=== PATIENT | female | born 1985 | race African-American/Black ===

== ENCOUNTER 2018-02-09 21:07 | Emergency (ER) | payer MEDICAID ==
[~2018-02-09] VITALS: Ht 160 cm; Wt 86.2 kg
[2018-02-09 21:26] VITALS: BP 129/80
== END 2018-02-10 | disposition left against medical advice (07) ==
LOC: ER 21:24
DX: Z53.21 Procedure and treatment not carried out due to patient leaving prior to being seen by health care provider (principal)

== ENCOUNTER 2019-03-15 08:25 | Emergency (ER) | payer MEDICAID ==
[~2019-03-15] VITALS: Ht 167.6 cm; Wt 106.0 kg
[2019-03-15] MEDS ORDERED: IBUPROFEN 800MG TABLET PO ONE (10:30)
[2019-03-15 11:35] VITALS: BP 129/91
== END 2019-03-15 11:55 | disposition home or self-care (01) ==
LOC: ER 08:25
DX: G56.01 Carpal tunnel syndrome, right upper limb (principal); F12.10 Cannabis abuse, uncomplicated; Z90.49 Acquired absence of other specified parts of digestive tract; Z98.890 Other specified postprocedural states
CPT/HCPCS: 29125; 99283

== ENCOUNTER 2019-05-24 20:18 | Inpatient (IN) | payer MEDICAID ==
[~2019-05-24] VITALS: Ht 152.4 cm; Wt 99.8 kg
[2019-05-25] MEDS ORDERED: KETOROLAC 30MG/ML VIAL IV STA (01:09)
[2019-05-25] MEDS ORDERED: ONDANSETRON HCL 4MG/2ML INJ IV STA (01:09)
[2019-05-25] MEDS ORDERED: SODIUM CHLORIDE 0.9% 1,000 ML IV ONE (01:09)
[2019-05-25 01:28] LABS: BASOPHILS % 0.2 % (0.0-2.0); EOSINOPHILS % 0.9 % (0.0-5.0); HEMATOCRIT. 43.3 % (36.0-48.0); HEMOGLOBIN. 14.4 g/dL (12.0-16.0); LYMPHOCYTES % 12.8 % (20.0-50.0); MEAN CORPUSCULAR HEMOGLOBIN 28.6 pg (28.0-32.0); MEAN PLATELET VOLUME 7.5 fl (7.4-10.4); MONOCYTES % 6.4 % (2.0-8.0); NEUTROPHILS % 79.7 % (40.0-76.0); PLATELET 337 x1000/uL (130-400); RED BLOOD CELL COUNT 5.04 mill/uL (4.2-5.4); RED CELL DISTRIBUTION WIDTH 16.1 % (11.6-14.6)
[2019-05-25 01:33] LABS: CHLORIDE 104 mEq/L (98-107)
[2019-05-25 01:42] LABS: CLARITY URINE CLEAR (CLEAR); COLOR URINE DARK YELLOW (YELLOW); KETONES URINE NEGATIVE (NEGATIVE); LEUKOCYTE ESTERASE URINE NEGATIVE (NEGATIVE); NITRITE URINE NEGATIVE (NEGATIVE); OCCULT BLOOD URINE NEGATIVE (NEGATIVE); PROTEIN URINE NEGATIVE (NEGATIVE); SPECIFIC GRAVITY URINE 1.026 (1.005-1.030)
[2019-05-25] MEDS ORDERED: MORPHINE SULFATE 4 MG/ML CPJ (NOT FOR IM USE) IV ONE (03:45)
[2019-05-25] MEDS ORDERED: CEFTRIAXONE 1 G PREMIX 50 ML IV ONE (04:00)
[2019-05-25] MEDS ORDERED: METRONIDAZOLE 500 MG PREMIX 100 ML IV ONE (04:00)
[2019-05-25 08:30] VITALS: BP 139/97
[2019-05-25 08:57] LABS: HCG SCREEN NEGATIVE
[2019-05-25] MEDS ORDERED: HYDROCODONE/ACETAMINOPHEN 5/325MG TABLET PO PRN (09:45)
[2019-05-25] MEDS ORDERED: LORAZEPAM 0.5MG TABLET PO PRN (09:45)
[2019-05-25] MEDS ORDERED: ONDANSETRON HCL 4MG/2ML INJ IV PRN (09:45)
[2019-05-25] MEDS ORDERED: IPRATROPIUM/ALBUTEROL 0.5-3(2.5)MG/3ML NEB INH PRN (09:45)
[2019-05-25] MEDS ORDERED: CLONIDINE 0.1MG TABLET PO PRN (09:45)
[2019-05-25] MEDS ORDERED: ACETAMINOPHEN 325MG TABLET PO PRN (09:45)
[2019-05-25 10:21] VITALS: BP 139/91
[2019-05-25] MEDS: MORPHINE SULFATE 2 MG/ML CPJ (NOT FOR IM USE) IV PRN ×2 (11:05→18:15)
[2019-05-25 12:00] VITALS: BP 119/66
[2019-05-25] MEDS: DEXT 5%/0.9% NACL 1,000 ML IV SCH (13:13)
[2019-05-25 14:02] LABS: HEPATITIS B SURFACE ANTIGEN NEGATIVE
[2019-05-25 14:32] LABS: HEPATITIS A AB IGM NEGATIVE (NEGATIVE)
[2019-05-25 16:25] VITALS: BP 127/76
[2019-05-25 20:00] VITALS: BP 123/64
[2019-05-25 22:06] LABS: CHLORIDE 105 mEq/L (98-107)
[2019-05-26] VITALS: BP 144/87
[2019-05-26] MEDS: DEXT 5%/0.9% NACL 1,000 ML IV SCH (00:04)
[2019-05-26 04:00] VITALS: BP 142/94
[2019-05-26 07:46] LABS: PROTHROMBIN TIME 10.2 sec (9.6-11.0)
[2019-05-26 07:58] LABS: BASOPHILS % 0.6 % (0.0-2.0); EOSINOPHILS % 2.7 % (0.0-5.0); HEMATOCRIT. 37.2 % (36.0-48.0); HEMOGLOBIN. 12.6 g/dL (12.0-16.0); MEAN CORPUSCULAR HEMOGLOBIN 28.9 pg (28.0-32.0); MEAN CORPUSCULAR VOLUME 85.5 fL (81.0-99.0); MEAN PLATELET VOLUME 7.8 fl (7.4-10.4); MONOCYTES % 10.3 % (2.0-8.0); NEUTROPHILS % 67.4 % (40.0-76.0); PLATELET 321 x1000/uL (130-400); RED BLOOD CELL COUNT 4.36 mill/uL (4.2-5.4); RED CELL DISTRIBUTION WIDTH 16.2 % (11.6-14.6)
[2019-05-26 08:00] VITALS: BP 125/72
[2019-05-26] MEDS: MORPHINE SULFATE 2 MG/ML CPJ (NOT FOR IM USE) IV PRN (08:14)
[2019-05-26] MEDS ORDERED: CEFAZOLIN 1000MG PREMIX 50 ML IV NR (12:00)
[2019-05-26 12:15] VITALS: BP 122/77
[2019-05-26] MEDS: LEVOFLOXACIN 500MG PREMIX 100 ML IV SCH (13:09)
[2019-05-26] MEDS ORDERED: IOHEXOL-300 100 ML BOTTLE ONE (14:52)
[2019-05-26] MEDS ORDERED: SIMETHICONE 40 MG/0.6 ML 30ML ONE (15:09)
[2019-05-26] MEDS ORDERED: METOCLOPRAMIDE HCL 10MG/2ML VIAL ONE (15:33)
[2019-05-26] MEDS ORDERED: GLYCOPYRROLATE 0.2 MG/ML 2ML VIAL ONE (15:33)
[2019-05-26] MEDS ORDERED: LIDOCAINE HCL/PF 1% 10 MG/ML 5ML VIAL ONE (15:33)
[2019-05-26] MEDS ORDERED: ROCURONIUM BROMIDE 10MG/ML VIAL 5ML IV ONE (15:33)
[2019-05-26] MEDS ORDERED: MIDAZOLAM HCL 2 MG/2 ML VIAL ONE (15:33)
[2019-05-26] MEDS ORDERED: SUCCINYLCHOLINE CHLORIDE 200MG/10ML IV ONE (15:33)
[2019-05-26] MEDS ORDERED: CEFAZOLIN SODIUM 1000MG/VIAL ONE (15:33)
[2019-05-26] MEDS ORDERED: SODIUM CHLORIDE 0.9% 10ML VIAL ONE (15:33)
[2019-05-26] MEDS ORDERED: DEXAMETHASONE 4MG/ML 1ML VIAL ONE (15:33)
[2019-05-26] MEDS ORDERED: EPHEDRINE SULFATE 50MG/ML VIAL ONE (15:33)
[2019-05-26] MEDS ORDERED: NEOSTIGMINE METHYLSULFATE 1MG/ML 10 ML VIAL ONE (15:33)
[2019-05-26] MEDS ORDERED: PROPOFOL 200MG/20ML VIAL IV ONE (15:33)
[2019-05-26] MEDS ORDERED: ONDANSETRON HCL 4MG/2ML INJ ONE (15:33)
[2019-05-26] MEDS ORDERED: FENTANYL CITRATE/PF 50MCG/ML 2ML VIAL ONE ×2 (15:33→15:58)
[2019-05-26] MEDS ORDERED: HYDROMORPHONE HCL/PF 2MG/ML CPJ IV PRN (18:00)
[2019-05-26 20:00] VITALS: BP 132/78
[2019-05-27] VITALS: BP 152/95
[2019-05-27 04:00] VITALS: BP 126/82
[2019-05-27 05:13] LABS: HIV SCREEN 4G Non Reactive (Non Reactive)
[2019-05-27 06:29] LABS: PROTHROMBIN TIME 10.7 sec (9.6-11.0)
[2019-05-27 06:52] LABS: CHLORIDE 106 mEq/L (98-107)
[2019-05-27 07:03] LABS: BASOPHILS % 0.3 % (0.0-2.0); HEMATOCRIT. 37.8 % (36.0-48.0); HEMOGLOBIN. 12.9 g/dL (12.0-16.0); LYMPHOCYTES % 10.1 % (20.0-50.0); MEAN CORPUSCULAR VOLUME 85.3 fL (81.0-99.0); MEAN PLATELET VOLUME 7.7 fl (7.4-10.4); MONOCYTES % 4.9 % (2.0-8.0); NEUTROPHILS % 84.7 % (40.0-76.0); PLATELET 374 x1000/uL (130-400); RED BLOOD CELL COUNT 4.43 mill/uL (4.2-5.4); RED CELL DISTRIBUTION WIDTH 15.6 % (11.6-14.6)
[2019-05-27 08:00] VITALS: BP 114/74
[2019-05-27 12:00] VITALS: BP 132/92
[2019-05-27] MEDS: LEVOFLOXACIN 500MG PREMIX 100 ML IV SCH (12:43)
[2019-05-27 14:57] VITALS: BP 132/92
== END 2019-05-27 15:52 | disposition home or self-care (01) | DRG 813 ==
LOC: ER 20:54 → 6EST 05-25 05:24 → EDBEDREQ 05-25 05:30 → EDBEDREQTM 05-25 05:30 → ENRESERV 05-25 07:39
PROVIDERS: ADMIT Internal Medicine; ATTEND Internal Medicine
PROC: 0FC98ZZ Extirpation of Matter from Common Bile Duct, Via Natural or Artificial Opening Endoscopic (ICD-10-PCS; principal; 2019-05-26)
PROC: 0FPB8DZ Removal of Intraluminal Device from Hepatobiliary Duct, Via Natural or Artificial Opening Endoscopic (ICD-10-PCS; 2019-05-26)
PROC: 0F798DZ Dilation of Common Bile Duct with Intraluminal Device, Via Natural or Artificial Opening Endoscopic (ICD-10-PCS; 2019-05-26)
PROC: BF13YZZ Fluoroscopy of Gallbladder and Bile Ducts using Other Contrast (ICD-10-PCS; 2019-05-26)
DX: T85.590A Other mechanical complication of bile duct prosthesis, initial encounter (principal); K80.61 Calculus of gallbladder and bile duct with cholecystitis, unspecified, with obstruction; Y83.8 Other surgical procedures as the cause of abnormal reaction of the patient, or of later complication, without mention of misadventure at the time of the procedure; Y92.89 Other specified places as the place of occurrence of the external cause; Z98.891 History of uterine scar from previous surgery
CPT/HCPCS: 36415; 74181; 74328; 76705; 78227; 80048; 80076; 81025; 82140; 84703; 86705; 86709; 86803; 87340; 87389; 88300; 96361; 96365; 96367; 96375; 99285; A9537; C1726; C1769; C2625; J0330; J0690; J0696; J1100; J1885; J1956; J2250; J2270; J2405; J2704; J2710; J2765; J3010; J3490; J7030; J7042; Q9967

== ENCOUNTER 2025-07-19 09:25 | Emergency (ER) | payer OTHER, MEDICAID ==
[~2025-07-19] VITALS: Ht 165.1 cm; Wt 65.0 kg
[2025-07-19 09:27] VITALS: TEMP 36.8; O2SAT 100
[2025-07-19 09:58] LABS: HEMATOCRIT. 38.4 % (36.0-48.0); HEMOGLOBIN. 12.7 g/dL (12.0-16.0); MEAN PLATELET VOLUME 7.5 fl (7.4-10.4); PLATELET 429 x1000/uL (130-400); RED BLOOD CELL COUNT 4.76 mill/uL (4.2-5.4); RED CELL DISTRIBUTION WIDTH 16.2 % (11.6-14.6)
[2025-07-19] MEDS: LACTATED RINGERS 1,000 ML IV SCH (10:07)
[2025-07-19] MEDS: ONDANSETRON HCL 4MG/2ML INJ IV ONE (10:07)
[2025-07-19] MEDS: MORPHINE SULFATE 4 MG/ML INJ (FOR IV/IM USE) IV ONE (10:07)
[2025-07-19 10:09] LABS: CREATININE 0.7 mg/dL (0.6-1.0); UREA NITROGEN BLOOD 6 mg/dL (9-23)
[2025-07-19 10:11] LABS: ASPARTATE AMINOTRANSFERASE 14 IU/L (<34); BILIRUBIN DIRECT 0.3 mg/dL (<=3.0); BILIRUBIN TOTAL 1.1 mg/dL (0.1-1.0); PROTEIN TOTAL 8.0 g/dL (6.0-8.3)
[2025-07-19 10:19] LABS: HCG SCREEN NEGATIVE
[2025-07-19 11:12] LABS: BAND% 4.0 % (1.0-6.0); LYMPHOCYTES % MANUAL 11.0 % (20.0-60.0); NEUTROPHILS % MANUAL 85.0 % (45.0-75.0); PLATELET ESTIMATE INCREASED
[2025-07-19] MEDS ORDERED: KETO10TA2 MT (11:58)
[2025-07-19] MEDS ORDERED: ONDA-239 PO (11:58)
[2025-07-19] MEDS ORDERED: AMOX1TAB16 MT (11:58)
[2025-07-19 12:09] VITALS: BP 131/70; PULSE 73; RESP 14; O2SAT 100
== END 2025-07-19 12:16 | disposition home or self-care (01) ==
LOC: ER 09:41
DX: R10.31 Right lower quadrant pain (principal); R11.2 Nausea with vomiting, unspecified; K52.9 Noninfective gastroenteritis and colitis, unspecified; Z90.49 Acquired absence of other specified parts of digestive tract
CPT/HCPCS: 80076; 80048; 84703; 83690; 85025; 36415; 74176; 96361; 96374; 96375; 99285; J2405; J2270; Z7610